=== PATIENT | male | born 1985 | race Caucasian/White ===

== ENCOUNTER 2025-01-09 17:19 | Emergency (ER) | payer MEDICAID, SELFPAY ==
[2025-01-09 17:52] VITALS: BP 146/90; PULSE 78; RESP 18; TEMP 36.6; O2SAT 99; BMI 34.9
--- NOTE | 2025-01-09 18:03 | PD.EDSKIN ---
ED Skin Abcess FB-RME/HPI General Chief complaint: Skin/Abscess/Foreign Body Stated complaint: LEG ULCERS Time Seen by Provider: 01/09/25 17:23 Arrival date/time: 01/09/25 17:19 RME / HPI RME / HPI narrative: -39-year-old male patient came in for evaluation regarding wound check. Patient had a chronic wound to the right lower leg, told me for several years, it comes and goes, this time is been ongoing for the last several weeks patient is worried because it is leaking clear liquid. Denies any fever denies any other complaints except for chronic swelling to the right lower leg. Patient is ambulatory. Related Data Previous Rx's ?Medication ?Instructions ?Recorded sulfamethoxazole 800 1 tab PO BID #20 tabs 01/09/25 mg-trimethoprim 160 mg tablet (Bactrim DS) Allergies Allergy/AdvReac Type Severity Reaction Status Date / Time Penicillins Allergy Verified 01/09/25 17:22 Review of Systems Review of Systems Narrative Review of Systems: Review of system reviewed and within normal limits except mentioned in HPI ED Exam Narrative Physical exam: VITAL SIGNS: Reviewed. GENERAL APPEARANCE: Alert and interactive, follows commands, no acute distress, HEAD AND FACE: Non-traumatic. ENT: PERRL, pink conjunctivitis, eyelid no trauma, Mucous membrane moist. NECK: Supple, nontender, no nuchal rigidity. CHEST: No tenderness, no crepitus, no paradoxical movement, no retractions. LUNGS: Clear, well ventilated, symmetric, no rales, no wheezing, no ronchi, no stridor, good breath sounds bilaterally. HEART: Regular rate, regular rhythm, no murmur, no gallops. ABDOMEN: Soft, positive bowel sounds, nondistended, no guarding, nontender, no rebound, no masses, RECTAL: Deferred. GENITAL: Deferred. NEUROLOGICAL: Gross motor function intact sensory function intact, Appropriate for age. MUSCULOSKELETAL: low back nontender, full range of motion. EXTREMITIES: Multiple chronic wound noted on the right lower leg, chronic discoloration of the right lower leg, +2 nonpitting edema, with serous drainage none foul-smelling, full range of motion. SKIN: Color pink, dry, no rash, no lacerations, no abrasions, no contusions. LYMPHATICS: Deferred. Course Quality Measures none Orders Category Date Time Status Furosemide [Lasix] Med 01/09/25 18:02 Discontinued 40 mg PO X1 ONE Trimethoprim/Sulfa 160/800 Ds [Bactrim Ds] Med 01/09/25 18:02 Discontinued 1 tab PO X1 ONE Vital Signs Vital signs: Vital Signs Temperature 97.8 F 01/09/25 17:52 Pulse Rate 78 01/09/25 17:52 Respiratory Rate 18 01/09/25 17:52 Blood Pressure 146/90 H 01/09/25 17:52 Pulse Oximetry (%) 99 01/09/25 17:52 Oxygen Delivery Method Room Air 01/09/25 17:52 Skin / Abscess / Foreign Body MDM Narrative MDM Narrative:: -39-year-old male patient came in for evaluation regarding wound check. Patient had a chronic wound to the right lower leg, told me for several years, it comes and goes, this time is been ongoing for the last several weeks patient is worried because it is leaking clear liquid. Denies any fever denies any other complaints except for chronic swelling to the right lower leg. Patient is ambulatory. Imaging or workup is not at this time. Patient is having chronic problem the leg for several weeks or months. Patient was advised to closely follow-up with PCP and for referral to quality assurance specialist. This takes long wound care to heal. Patient data External records reviewed:: None Clinical information provided by:: patient and family Social determinants that could affect healthcare access:: none Patient has the following chronic illnesses:: History of congestive heart failure How is presenting disease/condition affected by chronic disease/condition?: exacerbated by Evaluation data The following diagnostics were reviewed and interpreted by me:: other (specify) Lab and/or radiology exams considered but not ordered:: None Interpretation Summary: None Medications / Prescriptions Medications or Prescriptions considered but not ordered:: None Lasix and Bactrim Medication administrations:: Medication Administration History Discontinued Medications Furosemide (Furosemide 40 Mg Tablet) 40 mg PO X1 ONE Stop: 01/09/25 18:03 Last Admin: 01/09/25 18:40 Dose: 40 mg Documented By: ADELE Trimethoprim/Sulfamethoxazole (Trimethoprim/Sulfa 160/800 Ds Tablet) 1 tab PO X1 ONE Stop: 01/09/25 18:03 Last Admin: 01/09/25 18:41 Dose: 1 tab Documented By: ADELE Comments: barcode cut off, unable to scan Lasix and Bactrim Consultations Consultation(s) initiated? (list below): No Diagnosis Skin/Abscess Differential Diagnosis: abscess of skin or subcutaneous tissue, cellulitis and other (Chronic leg ulcers) Most likely diagnosis given after review of the tests above:: Chronic leg ulcers Admission Indicated Admission indicated?: not indicated Explain why admission is indicated or not indicated:: Stable Admission Request Was there a request for admission?: No Disposition Plan Disposition Plan: Discharge Discharge Attestation Discharge Attestation: The patient and all family members were given an opportunity to ask questions and understood the discharge instructions. Discharge instructions specifically effects, indications for sooner follow up or return to the emergency department, and the expected course of current diagnosis. Patient condition: Stable Discharge Plan Plan Patient Disposition: HOME (Self Care) Disposition Comment: Stable Prescriptions/Referrals Prescriptions/Med Rec: New sulfamethoxazole-trimethoprim [Bactrim DS] 800-160 mg tablet 1 tab PO BID Qty: 20 0RF Problem List Clinical Impression: Chronic ulcer of leg Patient/Caregiver Discharge Instructions Discharge Activity: activity as tolerated Education Materials: Wound Care Additional Instructions: Thank you for the opportunity for serving you today. You are stable for discharged . You are advised to: Follow-up with your PCP in 1 to 2 days as your PCP to refer you to a interactive digital media specialist Return to ED for worsening of symptoms Elevate legs as needed Take medication as prescribed Print Language: Persian Stand Alone Forms: Talya Award Info., Patient Portal Info Letter DELMAR/LUKE Supervising Physician DELMAR/LUKE Supervising Physician: MD Carloz
[2025-01-09 18:40] VITALS: BP 146/90; PULSE 78
[2025-01-09] MEDS: Furosemide 40 MG TABLET PO (18:40)
[2025-01-09] MEDS: TRIMETHOPRIM/SULFA 160/800 DS TABLET 1 TAB PO (18:41)
== END 2025-01-09 19:33 | disposition home or self-care (01) ==
PROVIDERS: Emergency Provider Emergency Medicine
DX: L97.919 Non-pressure chronic ulcer of unspecified part of right lower leg with unspecified severity (principal)
CPT/HCPCS: 99282; A9270